=== PATIENT | male | born 1970 | race African-American/Black ===

== ENCOUNTER 2023-12-06 10:33 | Inpatient (IN) | payer OTHER ==
[2023-12-06 11:24] VITALS: BMI 22.8
[2023-12-06] MEDS ORDERED: NICOTINE POLACRILEX 2 MG LOZENGE BC PRN (11:52)
[2023-12-06] MEDS ORDERED: NICOTINE POLACRILEX 2 MG GUM BUC PRN (11:52)
[2023-12-06] MEDS ORDERED: LOPERAMIDE HCL 2 MG CAPSULE PO PRN (11:52)
[2023-12-06] MEDS ORDERED: guaiFENesin 600 MG TABLET.ER (FP) PO PRN (11:52)
[2023-12-06] MEDS ORDERED: POLYETHYLENE GLYCOL (HEALTHYLAX) 3350 17 GM PACKET PO PRN (11:52)
[2023-12-06] MEDS ORDERED: ACETAMINOPHEN 325 MG TABLET (FP) PO PRN (11:52)
[2023-12-06] MEDS ORDERED: MAG HYDROX/AL HYDROX/SIMETH 30 ML UNIT-DOSE CUP PO PRN (11:52)
[2023-12-06] MEDS ORDERED: BENZONATATE 200 MG CAPSULE PO PRN (11:52)
[2023-12-06] MEDS: MELATONIN 5 MG TABLETS PO SCH (22:38)
[2023-12-06] MEDS: THIAMINE 100 MG TABLET PO SCH (22:38)
[2023-12-07] MEDS: PRENATAL VITAMINS W/ FOLIC ACID TABLET (FP) PO SCH (10:10)
[2023-12-07 10:28] LABS: HEMATOCRIT 36.5 % (35.4-49); HEMOGLOBIN 12.3 GM/dL (11.7-16.9); MCH 30.8 pg (25.7-33.7); MCHC 33.6 g/dl (32.0-35.9); MEAN CELL VOLUME 91.6 fl (80-96); MEAN PLT VOLUME 8.6 fl (7.5-11.1); PLATELET COUNT 284 10^3/uL (134-434); POTASSIUM 4.3 mmol/L (3.5-5.1); RBC 3.98 M/mm3 (4.00-5.60); RDW 14.6 % (11.9-15.9); WHITE BLOOD COUNT 5.4 K/mm3 (4.0-10.0)
[2023-12-07 10:29] LABS: CALCIUM 8.6 mg/dL (8.5-10.1)
[2023-12-07 10:30] LABS: ALBUMIN 2.9 g/dl (3.4-5.0); BLOOD UREA NITROGEN 16.4 mg/dL (7-18)
[2023-12-07 10:34] LABS: CREATININE 0.9 mg/dL (0.55-1.3)
[2023-12-07 10:35] LABS: BILIRUBIN,TOTAL 0.3 mg/dL (0.2-1); TOT PROT 5.4 g/dl (6.4-8.2)
[2023-12-07 11:47] LABS: SYPHILIS W/ RPR CONF NON-REACTIVE (NONREACTIVE)
[2023-12-07 12:33] LABS: HIV INTERPRETATION NEGATIVE (NEGATIVE)
[2023-12-07] MEDS: hydrOXYzine PAMOATE 25 MG CAPSULE (FP) PO PRN (13:42)
[2023-12-08 11:23] LABS: PH,URINE 6.5 (5.0-8.0); URINE APPEARANCE CLEAR; URINE BILIRUBIN NEGATIVE (NEGATIVE); URINE COLOR YELLOW; URINE GLUCOSE (UA) NEGATIVE (NEGATIVE); URINE KETONE NEGATIVE (NEGATIVE); URINE LEUK ESTERASE NEGATIVE (NEGATIVE); URINE NITRITE NEGATIVE (NEGATIVE); URINE PROTEIN NEGATIVE (NEGATIVE); URINE UROBILINOGEN 0.2 mg/dL (0.2-1.0)
[2023-12-09] MEDS: amLODIPine BESYLATE 2.5 MG TABLET (FP) PO SCH (16:39)
[2023-12-09] MEDS: HYDROCORTISONE 1% TOPICAL CREAM 30 GM TUBE TP PRN (16:40)
[2023-12-10 11:16] LABS: INR 0.81 (0.83-1.09); PROTHROMBIN TIME (PATIENT) 9.4 SEC (9.7-13.0)
[2023-12-10] MEDS: IBUPROFEN 400 MG TABLET (FP) PO PRN (14:06)
[2023-12-11] MEDS: MAGNESIUM HYDROX 2400MG/30ML ORAL SUSPENSION 30 ML CUP PO PRN (09:43)
[2023-12-12] MEDS: IBUPROFEN 600 MG TABLET (FP) PO PRN (21:23)
[2023-12-15] MEDS: CHOLECALCIFEROL (VIT D3) 400 UNIT (10 MCG) TABLET PO SCH (13:03)
[2023-12-15] MEDS: BENZOCAINE/MENTHOL (CHLORASEPTIC ) LOZENGE MM PRN (13:03)
[2023-12-16 07:15] VITALS: TEMP 97.3
[2023-12-16 09:21] VITALS: RESP 18
[2023-12-17 09:28] VITALS: BP 119/72; PULSE 75
== END 2023-12-17 12:54 | disposition home or self-care (01) | DRG 772 ==
LOC: YASAS 10:33 → Y3NR 12:32 → Y3W 12-07 13:37
PROVIDERS: ADMIT Allergy & Immunology; ATTEND Psychiatry & Neurology Pain Medicine
PROC: HZ42ZZZ Group Counseling for Substance Abuse Treatment, Cognitive-Behavioral (ICD-10-PCS; principal; 2023-12-06)
DX: F10.20 Alcohol dependence, uncomplicated (principal); F14.20 Cocaine dependence, uncomplicated; F17.210 Nicotine dependence, cigarettes, uncomplicated; I10 Essential (primary) hypertension; M17.11 Unilateral primary osteoarthritis, right knee; Z56.0 Unemployment, unspecified
CPT/HCPCS: 36415; 71046-TC-FY; 80053; 80305; 80307; 81003; 82140; 82652; 83735; 85027; 85610; 86780; 86803; 87389; 87811; 93005; 93010